=== PATIENT | male | born 1985 | race Caucasian/White ===

== ENCOUNTER 2017-07-21 19:32 | Emergency (ER) | payer BC ==
[~2017-07-21] VITALS: Ht 170.2 cm; Wt 100.0 kg
[2017-07-21 19:33] VITALS: BP 160/102; PULSE 96; RESP 16; TEMP 98; O2SAT 100
[2017-07-21] MEDS ORDERED: LORA0.5T PO (19:56)
--- NOTE | 2017-07-21 20:17 | PD ---
HPI Chief Complaint: Allergic/Adverse Reaction Time Seen by Provider: 20:08 Travel History International Travel<30 days: No Contact w/Intl Traveler<30days: No Traveled to known affect area: No History of Present Illness HPI The patient is a 31 year old male who presents to the [facility] emergency department with a history of a sensation of his throat closing/feeling like something was stuck in his throat while eating prior to arrival. He reports that this is happens several times in the past over the last few months. The patient reports that it seems to happen when he is eating cheese, usually on pasta with sauce. On this occasion, the patient reports that he also has a tingling sensation on his throat and tongue as well as a sour sensation and the back of the throat and on the tongue. He was concerned that this may be related to an allergic reaction. He denies ever having problems with food allergies in the past. He denies ever having allergy testing. He denies having any rashes associated with this. He denies having any chest pain or shortness of breath. He denies having any abdominal cramping or diarrhea associated with this. The patient does report having a history of acid reflux. He is on AcipHex. He reports that this is usually well controlled on his AcipHex. He reports that he has had endoscopy 1 year ago and was told to have it repeated in one year related to an abnormality. He is unable to explain exactly what the abnormality was. He denies having any difficulty swallowing solids such as meat. On review of systems otherwise, the patient denies having any recent fevers, cough, congestion, neck pain, vomiting, urinary symptoms, or neurologic symptoms. [facility] Past Medical History Narrative Medical The patient's past medical history is significant for anxiety disorder, GERD. PCP Dr. Carmona in [place] Medical History: Denies Significant Hx Past Surgical History Narrative Surgical The patient's past surgical history is significant for cholecystectomy. Cholecystectomy: Yes Social History Alcohol Use: No Tobacco Use: No Substance Use: No Allergies-Medications (Allergen,Severity, Reaction): Coded Allergies: Sulfa (Sulfonamide Antibiotics) (Verified Allergy, Unknown, 07/21/17) Reported Meds & Prescriptions Reported Meds & Active Scripts Active Medrol Dosepak (Methylprednisolone) 4 Mg Dspk 4 Mg PO DIRECTED Per Pharmacist direction Claritin (Loratadine) 10 Mg Cap 10 Mg PO DAILY 7 Days Epipen 2-Hussein Inj (Epinephrine) 0.3 Mg/0.3 Ml Pfpen 0.3 Mg IM ONCE PRN Reported Lorazepam 0.5 Mg Tab 0.5 Mg PO DAILY PRN Narrative Medication Aciphex Review of Systems Except as stated in HPI: all other systems reviewed are Neg General / Constitutional: No: Fever Eyes: No: Visual changes HENT: Positive: Sore Throat, No: Headaches, Congestion Cardiovascular: No: Chest Pain or Discomfort Respiratory: No: Shortness of Breath Gastrointestinal: Positive: Indigestion, No: Nausea, Vomiting, Diarrhea, Abdominal Pain Genitourinary: No: Dysuria Musculoskeletal: No: Pain Skin: No Rash Neurologic: No: Weakness Psychiatric: No: Depression Endocrine: No: Polydipsia Hematologic/Lymphatic: No: Easy Bruising Physical Exam Narrative General: The patient is a well-developed well-nourished male in no acute distress. Head and Neck exam: Head is normocephalic atraumatic. Eyes: EOMI, pupils are equal round and reactive to light. Nose: Midline septum with pink mucous membranes Mouth: Dentition unremarkable. Moist mucus membranes. Posterior oropharynx is not erythematous. No tonsillar hypertrophy. Uvula midline. Airway patent. Neck: No palpable lymphadenopathy. No nuchal rigidity. No thyromegaly. Cardiovascular: Regular rate and rhythm without murmurs, gallops, or rubs. Lungs: Clear to auscultation bilaterally. No wheezes, rhonchi, or rales. Abdomen: Soft, without tenderness to palpation in all 4 quadrants of the abdomen. No guarding, rebound, or rigidity. Normal bowel sounds are audible. No tenderness on palpation of McBurney's point. Extremities: No clubbing, cyanosis, or edema. 2+ pulses in all 4 extremities. No calf tenderness on palpation. Back: No costovertebral angle tenderness to palpation. Neurologic Exam: Grossly nonfocal. Skin Exam: No rash noted. Intact skin that is warm and dry. Data Data Last Documented VS Vital Signs Date Time Temp Pulse Resp B/P (MAP) Pulse Ox O2 Delivery O2 Flow Rate FiO2 07/21/17 21:51 16 100 Room Air 07/21/17 21:38 07/21/17 19:33 98.0 96 Orders Orders Electrocardiogram (07/21/17 20:11) Complete Blood Count With Diff (07/21/17 20:11) Basic Metabolic Panel (Bmp) (07/21/17 20:11) Magnesium (Mg) (07/21/17 20:11) Chest, Single Ap (07/21/17 20:11) Iv Access Insert/Monitor (07/21/17 20:11) Ecg Monitoring (07/21/17 20:11) Oximetry (07/21/17 20:11) Diphenhydramine Inj (Benadryl Inj) (07/21/17 20:30) Methylprednisolone So Succ Inj (Solumedr (07/21/17 20:30) Labs Laboratory Tests Test 07/21/17 20:15 White Blood Count 9.1 TH/MM3 Red Blood Count 5.55 MIL/MM3 Hemoglobin 16.1 GM/DL Hematocrit 46.1 % Mean Corpuscular Volume 83.1 FL Mean Corpuscular Hemoglobin 28.9 PG Mean Corpuscular Hemoglobin Concent 34.8 % Red Cell Distribution Width 12.6 % Platelet Count 315 TH/MM3 Mean Platelet Volume 8.0 FL Neutrophils (%) (Auto) 63.9 % Lymphocytes (%) (Auto) 26.0 % Monocytes (%) (Auto) 8.4 % Eosinophils (%) (Auto) 0.9 % Basophils (%) (Auto) 0.8 % Neutrophils # (Auto) 5.8 TH/MM3 Lymphocytes # (Auto) 2.4 TH/MM3 Monocytes # (Auto) 0.8 TH/MM3 Eosinophils # (Auto) 0.1 TH/MM3 Basophils # (Auto) 0.1 TH/MM3 CBC Comment DIFF FINAL Differential Comment Blood Urea Nitrogen 10 MG/DL Creatinine 1.07 MG/DL Random Glucose 88 MG/DL Calcium Level 9.4 MG/DL Magnesium Level 2.5 MG/DL Sodium Level 138 MEQ/L Potassium Level 3.5 MEQ/L Chloride Level 104 MEQ/L Carbon Dioxide Level 30.2 MEQ/L Anion Gap 4 MEQ/L Estimat Glomerular Filtration Rate 80 ML/MIN MDM Medical Decision Making Medical Screen Exam Complete: Yes Emergency Medical Condition: Yes Medical Record Reviewed: Yes Differential Diagnosis Developing esophageal stricture related to acid reflux, versus globus pallidus from anxiety, versus allergic reaction Narrative Course During the course of the patients emergency department visit, the patients history, examination, and differential diagnosis were reviewed with the patient. The patient was placed on a accounting tutor with oximetry and frequent blood pressure monitoring. The patient had IV access obtained and blood work sent for analysis. The patient had an ECG done on arrival that shows a sinus rhythm heart rate of 82, QRS duration 92 ms, QTC [address] segment elevation, T waves inverted in V1. The patient was initially provided Solu-Medrol 100 mg IV 1, Benadryl 25 mg IV. The patients laboratory studies were reviewed and remarkable for a white count of 9.1, hemoglobin 16.1, platelets 315 with a 8.4 monocytes, V2 metabolic profile is remarkable for a GFR of 80, magnesium 2.5 Radiology studies were reviewed and remarkable for a chest x-ray that shows no evidence of acute cardiopulmonary disease. The patient on reexamination is reportedly feeling improved. The patient will be discharged home with a prescription for Claritin, a Medrol Dosepak taper, and an EpiPen. The patient was instructed to follow-up with his primary care physician for referral to an layout operator. The patient is also instructed to follow-up with eligibility and occupancy interviewer as previously planned. The patient is resting comfortably and feels better, is alert and in no distress. The patients results and examination findings were discussed with the patient. The repeat examination is unremarkable and benign. The history, exam, diagnostic testing, and current condition do not suggest any significant pathology to warrant further testing, continued ED treatment, admission, or surgical evaluation at this point. The vital signs have been stable. The patient does not have uncontrollable pain, intractable vomiting, or other significant symptoms. The patient's condition is stable and appropriate for discharge. The patient will pursue further outpatient evaluation with a primary care physician or other designated or consulting physician as indicated in the discharge instructions. The patient expressed understanding and was agreeable with this plan. Diagnosis Primary Impression: Allergic reaction Qualified Codes: T78.40XA - Allergy, unspecified, initial encounter Referrals: Senior Physical Therapist 1 week Primary Care Physician 3 days Patient Instructions: General Allergic Reaction (ED), General Instructions Additional Instructions: The patient is instructed regarding the importance of following up for repeat endoscopy as previously instructed by his eligibility and occupancy interviewer. Scripts Methylprednisolone Dosepak (Medrol Dosepak) 4 Mg Dspk 4 MG PO DIRECTED, #1 DSPK 0 Refills Per Pharmacist direction Prov: Sara Thrasher MD 07/21/17 Loratadine (Claritin) 10 Mg Cap 10 MG PO DAILY for Allergy Management for 7 Days, #7 CAP 0 Refills Prov: Sara Thrasher MD 07/21/17 Epinephrine Inj (Epipen 2-Hussein Inj) 0.3 Mg/0.3 Ml Pfpen 0.3 MG IM ONCE Y for ALLERGIC REACTION, #1 PACK 0 Refills Prov: Sara Thrasher MD 07/21/17 Disposition: 01 DISCHARGE HOME Condition: Stable Sara Thrasher MD Jul 21, 2017 20:17
[2017-07-21] MEDS ORDERED: diphenhydrAMINE HCL 50 MG/ML VIAL IV PUSH ONE (20:30)
[2017-07-21] MEDS ORDERED: methylPREDNISolone SOD SUCC 125 MG/2 ML VIAL IV PUSH ONE (20:30)
--- NOTE | 2017-07-21 20:31 | RADRPT ---
EXAM DATE/TIME: 07/21/2017 20:15 [place] COMPARISON: No previous studies available for comparison. INDICATIONS : Cough MEDICAL HISTORY : None. SURGICAL HISTORY : None. ENCOUNTER: Initial ACUITY: 1 day PAIN SCORE: 0/10 LOCATION: chest FINDINGS: A single view of the chest demonstrates the lungs to be symmetrically aerated without evidence of mas s, infiltrate or effusion. The cardiomediastinal contours are unremarkable. Osseous structures are intact. CONCLUSION: No acute disease. Christoph Paniagua MD on July 21, 2017 at 20:28 Board Certified Radiologist. This report was verified electronically.
[2017-07-21 20:50] LABS: AUTOMATED NEUTROPHIL # 5.8 TH/MM3 (1.8-7.7); BASOPHIL # 0.1 TH/MM3 (0-0.2); BASOPHIL % 0.8 % (0.0-2.0); EOSINOPHIL # 0.1 TH/MM3 (0-0.4); EOSINOPHIL % 0.9 % (0.0-4.0); HEMATOCRIT 46.1 % (39.0-51.0); HEMOGLOBIN 16.1 GM/DL (13.0-17.0); LYMPHOCYTE # 2.4 TH/MM3 (1.0-4.8); MEAN CELL VOLUME 83.1 FL (80.0-100.0); MEAN CORPUSCULAR HEMOGLOBIN 28.9 PG (27.0-34.0); MEAN CORPUSCULAR HGB CONC 34.8 % (32.0-36.0); MONO % 8.4 % (0.0-8.0); MONOCYTE # 0.8 TH/MM3 (0-0.9); NEUT % 63.9 % (16.0-70.0); PLATELET COUNT 315 TH/MM3 (150-450); RED BLOOD COUNT 5.55 MIL/MM3 (4.50-5.90); RED CELL DISTRIBUTION WIDTH 12.6 % (11.6-17.2); WHITE BLOOD COUNT 9.1 TH/MM3 (4.0-11.0)
[2017-07-21 21:07] LABS: BICARBONATE 30.2 MEQ/L (21.0-32.0); CALCIUM 9.4 MG/DL (8.5-10.1); CREATININE 1.07 MG/DL (0.60-1.30); MAGNESIUM 2.5 MG/DL (1.5-2.5)
[2017-07-21 21:38] VITALS: O2SAT 100
[2017-07-21] MEDS ORDERED: MEDR4PAK PO (21:48)
[2017-07-21] MEDS ORDERED: EPIP0.3I IM (21:48)
[2017-07-21] MEDS ORDERED: CLAR10CA3 PO (21:48)
--- NOTE | 2017-07-22 19:27 | EKG ---
Date Performed: 07/21/2017 Time Performed: 21:47:53 PTAGE: 31 years EKG: Sinus rhythm INDETERMINATE AXIS ATYPICAL ECG NO PREVIOUS TRACING DOCTOR: Renay Garrett Interpretating Date/Time 07/22/2017 19:24:18
== END 2017-07-21 22:30 | disposition home or self-care (01) ==
LOC: NEPC 19:32
DX: T78.40XA Allergy, unspecified, initial encounter (principal); R20.2 Paresthesia of skin; K21.9 Gastro-esophageal reflux disease without esophagitis; Z79.899 Other long term (current) drug therapy; Z88.2 Allergy status to sulfonamides
CPT/HCPCS: 71045; 80048; 83735; 85025; 93005; 96374; 96375; 99284; J1200; J2930